=== PATIENT | male | born 1955 | race Caucasian/White ===

== ENCOUNTER → 2017-12-25 | Outpatient (CLI) | payer OTHER ==
--- NOTE | 2017-12-25 15:14 | XR ---
EXAMINATION TYPE: XR chest 2V DATE OF EXAM: 12/25/2017 COMPARISON: NONE HISTORY: M 46.2 TECHNIQUE: Frontal and lateral views of the chest are obtained. FINDINGS: Syndesmotic by noted compatible with patient's history of ankylosing spondylitis. Patient may be rotated. There may be a spinal curvature. No evident airspace disease, pneumothorax, or pleura l effusion. Cardiac mediastinal silhouette and pulmonary vascularity, brendon are normal. IMPRESSION: Findings compatible with patient's history of ankylosing spondylitis
== END | disposition home or self-care (01) ==
LOC: RADXRMAIN 11:39
PROVIDERS: ATTEND Family Medicine
DX: M45.2 Ankylosing spondylitis of cervical region (principal)
CPT/HCPCS: 71046

== ENCOUNTER → 2018-08-18 | Outpatient (CLI) | payer OTHER ==
--- NOTE | 2018-08-18 14:05 | XR ---
EXAMINATION TYPE: XR chest 2V DATE OF EXAM: 08/18/2018 COMPARISON: 12/25/2017 TECHNIQUE: PA and lateral views submitted. HISTORY: Wheezing FINDINGS: The lungs are clear and there is no pneumothorax, pleural effusion, or focal pneumonia. Arthropathy of the shoulders. There is a nodule at the right lung base measuring 8 mm. Hypertrophic change of th e vertebral column with degenerative disc disease. No overt failure. IMPRESSION: 1. No acute process. There is a 8 mm right lower lobe lung nodule for which CT of the chest is recomm ended.
== END | disposition home or self-care (01) ==
LOC: RADXRMAIN 13:33
PROVIDERS: ATTEND Family Medicine
DX: R91.1 Solitary pulmonary nodule (principal); J45.909 Unspecified asthma, uncomplicated
CPT/HCPCS: 71046

== ENCOUNTER → 2018-08-20 | Outpatient (CLI) | payer OTHER ==
--- NOTE | 2018-08-20 16:02 | CT ---
EXAMINATION TYPE: CT chest wo/w con DATE OF EXAM: 08/20/2018 COMPARISON: 08/18/2018 HISTORY: Abnormal xray results CT DLP: 1225 mGycm. Automated Exposure Control for Dose Reduction was Utilized. TECHNIQUE: CT scan of the thorax is performed following without and with IV Contrast, patient inject ed with 100 mL of Isovue 300. FINDINGS: LUNGS: The previously questioned 8 mm right lower lobe pulmonary nodule relates to an overlying nippl e shadow as no pulmonary nodules are seen. There is linear right middle lobe pleural parenchymal scar ring. The lungs are grossly clear, there is no concerning parenchymal mass or nodule identified. Th ere is no pleural effusion or pneumothorax seen. The tracheobronchial tree is patent. MEDIASTINUM: There are no greater than 1 cm hilar or mediastinal lymph nodes. No pericardial effusi on is seen. Mild coronary artery calcifications are present. OTHER: Bridging anterior osteophytes are seen throughout the thoracic spine that may be related to an kylosing spondylitis or less likely diffuse idiopathic skeletal hyperostosis. Fluid attenuated 1.3 cm hepatic cyst is appreciated with smaller probable cyst in segment IVb near the gallbladder fossa. Sc attered colonic diverticula are incidentally noted. IMPRESSION: 1. The previously questioned pulmonary nodule on prior chest radiograph is artifactual. No pulmonary nodules are seen. 2. Findings suggesting ankylosing spondylitis and less likely diffuse idiopathic skeletal hyperostosi s. 3. Mild coronary artery calcifications, marker of coronary artery disease.
== END | disposition home or self-care (01) ==
LOC: RADCTMAIN 15:13
PROVIDERS: ATTEND Family Medicine
DX: I25.10 Atherosclerotic heart disease of native coronary artery without angina pectoris (principal); R93.89 Abnormal findings on diagnostic imaging of other specified body structures
CPT/HCPCS: 71270; Q9967

== ENCOUNTER → 2018-12-22 | Outpatient (CLI) | payer OTHER ==
--- NOTE | 2018-12-23 05:42 | CONS ---
CONSULTATION Consultation note for sleep apnea. This is a 63-year-old male patient, a patient with known history of ankylosing spondylitis, maintained on Enbrel injections. The patient has had chronic history of ankylosing spondylitis complicated by restrictive lung disease. He also has mild intermittent bronchial asthma and previous history of nasal polyps for which he has undergone nasal polyp resection surgery. He was sent over for a sleep apnea evaluation. He snores on and off. He stops breathing at night and this has been reported by his . He goes to bed around 11:30 p.m., wakes up 7 a.m. in the morning. It takes him a few minutes to fall asleep. No major sleepiness although he gets tired during the day. No recent weight gain or weight loss. His current [place] Score is at 4. No history of any motor vehicle accident because of feeling drowsy or sleepy. He is still in the [id number] business and he is able to function well with adequate level of alertness. He does not take any naps during the day. In terms of his ankylosing spondylitis, the patient has improved significantly with the use of Enbrel injection. On and off he gets uncomfortable at night during sleep and sometimes back pain would disrupt his sleep. Yet for the most part, his symptoms are well controlled as the patient has gone undergone extensive treatment and rehabilitation. PAST MEDICAL HISTORY: 1. Ankylosing spondylitis. 2. Restrictive lung disease. 3. Mild intermittent bronchial asthma. 4. History of nasal polyps. PAST SURGICAL HISTORY: Past surgical history includes appendectomy. DRUG ALLERGIES: Drug allergies not known of. OUTPATIENT MEDICATION LIST: Outpatient medical list include: Enbrel 25 two times a week, citalopram 20 mg p.o. q. day, Singulair 10 mg p.o. q. day. SOCIAL HISTORY: Nonsmoker. No history of alcohol. No history of IV drugs. He drinks around 3 drinks of alcohol on daily basis. FAMILY HISTORY: Negative for sleep apnea. REVIEW OF SYSTEMS: Twelve-point review of system was done. Positive findings are mentioned above in history of present illness. No loss of insomnia. On a few occasions he has woken up gasping for air. Occasionally grinds his teeth. No sleepwalking or sleep talking. No dry mouth. No anxiety or panic attacks. No palpitation. No heartburn. No shortness of breath. No chest pain at night time. PHYSICAL EXAMINATION: His current vitals are as follows: BP is 115/69, pulse is 70, respirations 16, temperature 97.9, saturation 96% on room air. Height is 5 feet 8 inches, weight 195, and neck size 15-1/2 inches. GENERAL APPEARANCE: Calm, comfortable in no acute distress. Head is atraumatic, normocephalic. Neck is short, supple. There is no goiter or neck masses. Mallampati class 1. No overbite. No micrognathia. No macroglossia. LUNGS: Clear to auscultation. HEART: Sounds regular rate and rhythm. Normal S1, S2. No S3, S4. No murmurs. ABDOMEN: Soft, nontender. No organomegaly. EXTREMITIES: No edema, cyanosis or clubbing. NEUROLOGIC: Alert and oriented x3. No focal neurological deficits. PSYCHIATRIC: Negative for anxiety or depression. IMPRESSION: 1. Loud snoring and witnessed apneas. Consider obstructive sleep apnea in this patient. 2. History of ankylosing spondylitis. 3. History of restrictive lung disease secondary to ankylosing spondylitis. 4. History of mild intermittent bronchial asthma. PLAN: 1. Implement good sleep hygiene measures. 2. Continue Enbrel injections regarding ankylosing spondylitis. 3. Continue with daily exercise. 4. Proceed with a home sleep study to screen the patient for any sleep breathing disorder and treat accordingly. LUIS / MARY JO: [id number] /
== END ==
LOC: SLEEP 16:53
PROVIDERS: ATTEND Internal Medicine Critical Care Medicine
DX: R06.83 Snoring (principal); M45.9 Ankylosing spondylitis of unspecified sites in spine; J98.4 Other disorders of lung; J45.909 Unspecified asthma, uncomplicated; Z79.899 Other long term (current) drug therapy

== ENCOUNTER → 2019-06-22 | Outpatient (CLI) | payer OTHER ==
--- NOTE | 2019-06-22 10:50 | EST ---
EXERCISE STRESS DATE OF SERVICE: 06/22/2019 AGE: 63 SEX: Male HT: 70 WT: 197 PROTOCOL: Miguel STAGE: IV DURATION OF EXERCISE: 9-1/2 minutes HEART RATE REST: 79 BLOOD PRESSURE REST: 112/98 MAXIMUM HEART RATE ACHIEVED: 141 MAXIMUM BLOOD PRESSURE: 188/77 85% MPHR: 134 100% MPHR: 158 METS: 11 INDICATIONS: Coronary artery disease. CLINICAL INFORMATION: Baseline EKG shows sinus rhythm, normal axis, normal intervals. Patient exercised on Miguel protocol for a total of 9-1/2 minutes, achieving 11 METs, 89% of predicted maximal heart rate without chest pain or diagnostic ST-segment depression. CONCLUSIONS: 1. Good exercise tolerance. 2. Negative stress test by EKG criteria. MMODL / IJN: [id number] /
== END ==
LOC: RADNMMAIN 08:39
PROVIDERS: ATTEND Family Medicine
DX: I25.84 Coronary atherosclerosis due to calcified coronary lesion (principal)
CPT/HCPCS: 93017

== ENCOUNTER → 2019-11-11 | Outpatient (CLI) | payer OTHER ==
--- NOTE | 2019-11-11 13:59 | US ---
EXAMINATION TYPE: US abdomen complete DATE OF EXAM: 11/11/2019 COMPARISON: NONE CLINICAL HISTORY: R10.13 EPIGASTRIC PAIN. EXAM MEASUREMENTS: Liver Length: 14.1 cm Gallbladder Wall: 0.3 cm CBD: 0.4 cm Spleen: 10.7 cm Right Kidney: 11.5 X 5.9 X 5.3 cm Left Kidney: 11.9 X 5.1 X 5.5 cm technically difficult study due to extensive midline bowel gas. Pancreas: not visualized due to midline bowel gas Liver: limited visualization, appears wnl Gallbladder: No stones seen Evidence for sonographic May's sign: No CBD: wnl Spleen: wnl Right Kidney: midpole cyst measures 2.8 x 2.8 x 2.3 cm Left Kidney: No hydronephrosis or masses seen Upper IVC: wnl Abd Aorta: not visualized due to midline bowel gas IMPRESSION: 1. No sonographic evidence of cholelithiasis nor acute cholecystitis. 2. Exam is limited secondary to extensive midline bowel gas and there is suboptimal visualization of the liver and nonvisualization of the aorta and pancreas. 3. Benign appearing simple 2.8 cm right renal cyst.
== END | disposition home or self-care (01) ==
LOC: RADUSWWP 13:02
PROVIDERS: ATTEND Family Medicine
DX: R14.3 Flatulence (principal); N28.1 Cyst of kidney, acquired
CPT/HCPCS: 76700

== ENCOUNTER 2019-12-02 08:35 | Day surgery (SDC) | payer OTHER ==
[2019-12-01 09:00] VITALS: BMI 27.2
[~2019-12-02 08:35] MED LIST: LACTATED RINGERS 1,000 ML IV SCH
[2019-12-02 09:02] VITALS: TEMP 97.7
--- NOTE | 2019-12-02 09:23 | P.GSHP ---
History of Present Illness H&P Date: 12/02/19 CHIEF COMPLAINT: GERD HISTORY OF PRESENT ILLNESS: The patient is a 64-year-old male who presents reports gastroesophageal reflux disease. Upper endoscopy was offered for further evaluation and management. PAST MEDICAL HISTORY: Please see list. PAST SURGICAL HISTORY: Please see list. MEDICATIONS: Please see list. ALLERGIES: Please see list. SOCIAL HISTORY: No illicit drug use FAMILY HISTORY: No reports of Crohn disease or ulcerative colitis. REVIEW OF ORGAN SYSTEMS: CONSTITUTIONAL: No reports of fevers or chills. GI: Denies any blood in stools or constipation. PHYSICAL EXAM: VITAL SIGNS: Stable GENERAL: Well-developed and pleasant in no acute distress. HEENT: No scleral icterus. Extraocular movements grossly intact. Moist buccal mucosa. NECK: Supple without lymphadenopathy. CHEST: Unlabored respirations. Equal bilateral excursions. CARDIOVASCULAR: Regular rate and rhythm. Distal 2+ pulses. ABDOMEN: Soft, nondistended. MUSCULOSKELETAL: No clubbing, cyanosis, or edema. ASSESSMENT: 1. Gastroesophageal reflux disease PLAN: 1. Recommend proceeding with an upper endoscopy Past Medical History Past Medical History: Asthma, GERD/Reflux Additional Past Medical History / Comment(s): ankylosing spondilitis, no neck or head movement back and forth and side to side no chest expansion History of Any Multi-Drug Resistant Organisms: None Reported Past Surgical History: Appendectomy Additional Past Surgical History / Comment(s): rt knee meniscus, nasal polyps Past Anesthesia/Blood Transfusion Reactions: Motion Sickness Additional Past Anesthesia/Blood Transfusion Reaction / Comment(s): unable to move side to side and back and forth Smoking Status: Former smoker - Past Family History Mother Family Medical History: No Reported History Medications and Allergies Home Medications Medication Instructions Recorded Confirmed Type Ascorbic Acid [Vitamin C] 1 tab PO DAILY 12/01/19 12/02/19 History Celexa (Unk.Dose) 1 tab PO DAILY 12/01/19 12/02/19 History Cholecalciferol [Vitamin D3 (25 1,000 unit PO DAILY 12/01/19 12/02/19 History Mcg = 1000 Iu)] Etanercept [Enbrel] 25 mg SQ Q72H 12/01/19 12/02/19 History Inhaler (Unkn.Dose) 1 dose INHALATION BID 12/01/19 12/02/19 History Montelukast Sodium [Singulair] 10 mg PO DAILY 12/01/19 12/02/19 History Multivitamins, Thera [Multivitamin 1 tab PO DAILY 12/01/19 12/02/19 History (formulary)] Omeprazole (Unkn.Dose) 1 tab PO DAILY 12/01/19 12/02/19 History Allergies Allergy/AdvReac Type Severity Reaction Status Date / Time No Known Allergies Allergy Verified 12/02/19 08:57 Surgical - Exam Vital Signs Temp Pulse Resp BP Pulse Ox 97.7 F 66 17 119/71 95 12/02/19 09:01 12/02/19 09:01 12/02/19 09:01 12/02/19 09:01 12/02/19 09:01
[2019-12-02] MEDS ORDERED: GLYCOPYRROLATE 0.2 MG/ML 2 ML VIAL ONE (09:27)
[2019-12-02] MEDS ORDERED: PROPOFOL 10 MG/ML 20 ML VIAL IV ONE (09:27)
[2019-12-02] MEDS ORDERED: LIDOCAINE 1% INJ 10MG/ML (20 ML MDV) ONE (09:27)
--- NOTE | 2019-12-02 09:42 | P.PCN ---
Date of Procedure: 12/02/19 Description of Procedure: PREOPERATIVE DIAGNOSIS: Gastroesophageal reflux disease. POSTOPERATIVE DIAGNOSIS: Duodenal polyps with duodenitis Gastritis, acute on chronic diffuse Gastroesophageal reflux disease. OPERATION: Esophagogastroduodenoscopy with biopsies along antrum. SURGEON: Annie Solitario MD ANESTHESIA: MAC. INDICATIONS: The patient is a 64-year-old male who presents with a history of reflux disease. Benefits and risks of the procedure were described. Informed consent was obtained. DESCRIPTION: The patient was brought into the endoscopy suite and laid in the left lateral decubitus position. An Olympus gastroscope was passed along the posterior oropharynx down to the distal esophagus where the squamocolumnar junction was encountered at 42 cm from the incisors. The stomach was entered and no bile reflux was found. Additional findings are listed below. Biopsies with cold forceps were obtained of the antrum. The first through third portion of the duodenum was examined and remarkable acute duodenitis and multiple duodenal polyps. Retroflexion of the scope confirmed Hill grade 3 lower esophageal valve. The squamocolumnar junction demonstrated LA grade B erosive esophagitis. The stomach was desufflated. The patient tolerated the procedure well. FINDINGS: Squamocolumnar junction 42 cm from the incisors. Diaphragmatic hiatus at 42 cm. Hill grade 3 lower esophageal valve. LA grade B erosive esophagitis. Acute and chronic duodenitis with duodenal polyps Acute on chronic gastritis diffuse RECOMMENDATIONS: Repeat upper endoscopy in one month after treatment Plan - Discharge Summary Discharge Rx Participant: No New Discharge Prescriptions: No Action Montelukast Sodium [Singulair] 10 mg PO DAILY Etanercept [Enbrel] 25 mg SQ Q72H Omeprazole (Unkn.Dose) 1 tab PO DAILY Cholecalciferol [Vitamin D3 (25 Mcg = 1000 Iu)] 1,000 unit PO DAILY Multivitamins, Thera [Multivitamin (formulary)] 1 tab PO DAILY Ascorbic Acid [Vitamin C] 1 tab PO DAILY Inhaler (Unkn.Dose) 1 dose INHALATION BID Celexa (Unk.Dose) 1 tab PO DAILY Discharge Medication List Ascorbic Acid [Vitamin C] 1 tab PO DAILY 12/01/19 [History] Celexa (Unk.Dose) 1 tab PO DAILY 12/01/19 [History] Cholecalciferol [Vitamin D3 (25 Mcg = 1000 Iu)] 1,000 unit PO DAILY 12/01/19 [History] Etanercept [Enbrel] 25 mg SQ Q72H 12/01/19 [History] Inhaler (Unkn.Dose) 1 dose INHALATION BID 12/01/19 [History] Montelukast Sodium [Singulair] 10 mg PO DAILY 12/01/19 [History] Multivitamins, Thera [Multivitamin (formulary)] 1 tab PO DAILY 12/01/19 [History] Omeprazole (Unkn.Dose) 1 tab PO DAILY 12/01/19 [History] Follow up Appointment(s)/Referral(s): Annie Solitario MD [STAFF PHYSICIAN] - 12/14/19 Patient Instructions/Handouts: Duodenitis (DC), Gastritis (DC) Discharge Disposition: HOME SELF-CARE
[2019-12-02 09:49] VITALS: RESP 18
[2019-12-02 10:18] VITALS: BP 109/68; PULSE 57
== END 2019-12-02 10:43 | disposition home or self-care (01) ==
LOC: ORWHC2ENDO 08:35
PROVIDERS: ATTEND Surgery Plastic and Reconstructive Surgery
DX: K29.00 Acute gastritis without bleeding (principal); K29.50 Unspecified chronic gastritis without bleeding; K29.80 Duodenitis without bleeding; K31.7 Polyp of stomach and duodenum; K21.0 Gastro-esophageal reflux disease with esophagitis; K22.10 Ulcer of esophagus without bleeding; J45.909 Unspecified asthma, uncomplicated; F32.9 Major depressive disorder, single episode, unspecified; M45.9 Ankylosing spondylitis of unspecified sites in spine; Z79.899 Other long term (current) drug therapy; Z88.1 Allergy status to other antibiotic agents; Z90.49 Acquired absence of other specified parts of digestive tract; Z87.891 Personal history of nicotine dependence
CPT/HCPCS: 88305; 88342; 43239; J2001; J2704

== ENCOUNTER → 2019-12-06 | Outpatient (CLI) | payer OTHER ==
--- NOTE | 2019-12-06 09:32 | NM ---
Nuclear medicine hepatobiliary scan. HISTORY: Pain. DOSAGE: The patient received 8 ounces of ensure plus and 4.7 mCi of Technetium 99m Choletec. FINDINGS: There is normal hepatic extraction. The gallbladder is seen by 10 minutes. There is bilia ry to bowel clearance by 25 minutes. Ejection fraction is 60%. IMPRESSION: 1. Normal hepatobiliary exam
== END | disposition home or self-care (01) ==
LOC: RADNMMAIN 07:00
PROVIDERS: ATTEND Surgery Plastic and Reconstructive Surgery
DX: K81.9 Cholecystitis, unspecified (principal); Z88.1 Allergy status to other antibiotic agents
CPT/HCPCS: 78226; A9537

== ENCOUNTER → 2021-05-10 | Outpatient (CLI) | payer OTHER ==
--- NOTE | 2021-05-10 11:05 | CT ---
EXAMINATION TYPE: CT abdomen pelvis w con DATE OF EXAM: 05/10/2021 COMPARISON: NONE HISTORY: 65-year-old male R10.31, Right lower quadrant pain TECHNIQUE: Contiguous axial scanning of the abdomen and pelvis following administration of 100 ml Iso tor 300 IV contrast. Delayed images through the kidneys and coronal/sagittal reconstructions perform ed. CT DLP: 1060.4 mGycm Automated exposure control for dose reduction was used. FINDINGS: Heart upper limits of normal in size without pericardial effusion. Lung bases clear without pleural effusion. A view small hypodensities in the liver, largest anterior mid liver measuring 1.3 cm suggestive of cy sts. A vague hypodensity measuring 1.6 cm at the inferior right liver lobe, axial image 32 of more ap parent on the delayed kidney images could represent a subtle hemangioma. Recommend targeted ultrasoun d follow-up in 3 months to reassess. Portal venous system is patent. No biliary ductal dilatation. Gallbladder, adrenal glands, spleen, and pancreas within normal limits. The right kidney shows slight congenital malrotation with a 3.1 cm lateral cortical cyst and a smalle r medial cortical cyst measuring 1.0 cm. Tiny 1.1 cm exophytic cortical hypodensity posterior upper p ole left kidney likely cysts. Symmetric uptake and excretion of contrast from both kidneys. No dilated small bowel, free fluid, or free air. There is mild annular thickening and narrowing at the ileum for a span of 4 cm that may be transient peristalsis. Numerous clustered nonenlarged right lower quadrant mesenteric lymph nodes, coronal image 37, axial i mage 40. A couple, larger 1.2 cm mid mesenteric lymph nodes, coronal image 29 and 35. While the appendix is not discretely visualized, no abnormal thickened and dilated appendix to sugges t acute appendicitis. Oral contrast has progressed to the distal sigmoid. There is generalized colonic diverticulosis, grea test at the cecum and also in the sigmoid colon. Strandy densities along the sigmoid colon, for examp le, axial image 50 likely prominent pericolonic vessels rather than mild inflammation. Mild circumferential bladder wall thickening. Prostate gland is mildly enlarged at 4.3 cm. Left-sided pelvic phlebolith. No abnormal fluid collection in the pelvis or pelvic lymphadenopathy. There is a small fat-containing right indirect inguinal hernia demonstrated on axial image 60. Bones: Moderate degenerative change at the hips. There is bony ankylosis across the SI joints. Syndes mophytes within the visualized spine as well as fusion of the posterior elements of the spine. IMPRESSION 1. Cecal and sigmoid diverticulosis. Strandy densities along the sigmoid colon likely prominent peric olonic vessels rather than mild acute inflammation. Correlate clinically to exclude any symptoms of m ild acute diverticulitis. 2. Mild annular thickening and narrowing involving a 4 cm long segment of the terminal ileum could be thickening from transient peristalsis. Terminal ileitis not excluded. 3. Numerous nonenlarged and borderline to mildly enlarged right lower quadrant and mid mesenteric lym ph nodes measuring up to 1.2 cm. Probably reactive/post inflammatory. Mesenteric adenitis is a consid eration. If there are symptoms that would indicate a terminal ileitis, this could be reactive to unde rlying infection or IBD. Further clinical correlation recommended. Three-month follow-up CT to ensure stability/resolution. 4. A vague 1.6 cm lesion inferior right liver lobe could represent a small hemangioma and can also be reassessed at the three-month follow-up. 5. Small fat-containing right indirect inguinal hernia. 6. Bony findings in keeping with ankylosing spondylitis. :
== END | disposition home or self-care (01) ==
LOC: RADCTMAIN 07:00
PROVIDERS: ATTEND Family Medicine
DX: K57.30 Diverticulosis of large intestine without perforation or abscess without bleeding (principal); K63.89 Other specified diseases of intestine; R59.0 Localized enlarged lymph nodes; K76.9 Liver disease, unspecified; K40.90 Unilateral inguinal hernia, without obstruction or gangrene, not specified as recurrent
CPT/HCPCS: 74177; Q9967

== ENCOUNTER 2021-07-11 09:27 | Day surgery (SDC) | payer BC ==
[2021-07-05 14:23] VITALS: BMI 27.2
[~2021-07-11 09:27] MED LIST changes: +LIDOCAINE 1% (10MG/ML) FOR IV START INTRADERMA PRN
--- NOTE | 2021-07-11 09:55 | P.GSHP ---
History of Present Illness H&P Date: 07/11/21 CHIEF COMPLAINT: Colon screen HISTORY OF PRESENT ILLNESS: The patient is a 66-year-old male who presents for colon screen. Lower endoscopy was offered for further evaluation and management. PAST MEDICAL HISTORY: Please see list. PAST SURGICAL HISTORY: Please see list. MEDICATIONS: Please see list. ALLERGIES: Please see list. SOCIAL HISTORY: No illicit drug use FAMILY HISTORY: No reports of Crohn disease or ulcerative colitis. REVIEW OF ORGAN SYSTEMS: CONSTITUTIONAL: No reports of fevers or chills. PHYSICAL EXAM: VITAL SIGNS: Stable GENERAL: Well-developed pleasant in no acute distress. HEENT: No scleral icterus. Extraocular movements grossly intact. Moist buccal mucosa. NECK: Supple without lymphadenopathy. CHEST: Unlabored respirations. Equal bilateral excursions. CARDIOVASCULAR: Regular rate and rhythm. Distal 2+ pulses. ABDOMEN: Soft, nontender, nondistended. MUSCULOSKELETAL: No clubbing, cyanosis, or edema. ASSESSMENT: 1. Colon screen. PLAN: 1. Recommend proceeding with a lower endoscopy Past Medical History Past Medical History: Asthma, GERD/Reflux, Skin Disorder Additional Past Medical History / Comment(s): diverticulitis, sludge in gallbladder, anklylosing spondylitis History of Any Multi-Drug Resistant Organisms: None Reported Past Surgical History: Appendectomy, Orthopedic Surgery Additional Past Surgical History / Comment(s): rt knee surgery for torn ligament Past Anesthesia/Blood Transfusion Reactions: Motion Sickness Smoking Status: Former smoker - Past Family History Sister(s) Family Medical History: Cancer Medications and Allergies Home Medications Medication Instructions Recorded Confirmed Type Ascorbic Acid [Vitamin C] 1,000 mg PO DAILY 12/01/19 07/05/21 History Cholecalciferol [Vitamin D3 (25 1,000 unit PO DAILY 12/01/19 07/05/21 History Mcg = 1000 Iu)] Etanercept [Enbrel] 25 mg SQ Q72H 12/01/19 07/05/21 History Montelukast Sodium [Singulair] 10 mg PO DAILY 12/01/19 07/05/21 History Multivitamins, Thera [Multivitamin 1 tab PO DAILY 12/01/19 07/05/21 History (formulary)] Budesonide/Formoterol Fumarate 1 puff PO BID 07/05/21 07/05/21 History [Budesonide-Formoterol 160-4.5] Citalopram Hydrobromide [CeleXA] 20 mg PO DAILY 07/05/21 07/05/21 History Fluticasone Nasal [place] [Flonase 1 spray EA NOSTRIL DAILY 07/05/21 07/05/21 History Nasal [place]] Omeprazole [PriLOSEC] 40 mg PO QAM 07/05/21 07/05/21 History Allergies Allergy/AdvReac Type Severity Reaction Status Date / Time No Known Allergies Allergy Verified 07/11/21 09:46
[2021-07-11 10:03] VITALS: TEMP 98.4
[2021-07-11] MEDS ORDERED: LIDOCAINE 1% INJ 10MG/ML (20 ML MDV) ONE (10:03)
[2021-07-11] MEDS ORDERED: fentaNYL (PF) 50 MCG/ML 2 ML AMP ONE (10:03)
[2021-07-11] MEDS ORDERED: PROPOFOL 10 MG/ML 20 ML VIAL IV ONE (10:03)
--- NOTE | 2021-07-11 10:31 | P.PCN ---
Date of Procedure: 07/11/21 Description of Procedure: PREOPERATIVE DIAGNOSIS: Family history colon cancer, genetic disorder Personal history colon polyps Colonoscopy screening. POSTOPERATIVE DIAGNOSIS: Family history colon cancer, genetic disorder Personal history colon polyps Colonoscopy screening. Severe sigmoid diverticulosis External hemorrhoid, grade 4 OPERATION: Colonoscopy to the cecum, ileocecal valve and appendiceal orifice. SURGEON: Annie Solitario MD. ANESTHESIA: MAC. INDICATIONS: The patient is a 66-year-old male who presents for colonoscopy screening. Last colonoscopy 5 years ago. Benefits and risks were described and informed consent was obtained. DESCRIPTION OF PROCEDURE: The patient had undergone Sutab prep. The patient had been brought into the operating room and laid in the left lateral decubitus position. After adequate intravenous sedation, the rectum was examined with 2% lidocaine jelly. Acute external hemorrhoids were encountered. The rectal tone was within normal limits. No lesions were palpated in the rectal vault. An Olympus colonoscope was advanced until the cecum, ileocecal valve and appendiceal orifice were clearly viewed. The prep was excellent. Severe sigmoid diverticulosis was encountered. No colonic polyps were found. No evidence of focal colitis was found. Retroflexion of the scope demonstrated grade 1 internal hemorrhoids without active bleeding or inflammation. The colon was desufflated. The patient had tolerated the procedure well. Withdrawal time was over 6 minutes. FINDINGS: Aronchick preparation quality scale 2 (1-5) Internal hemorrhoids, grade 1 External prolapsed hemorrhoids, grade 4 No arteriovenous malformations. No adenomatous polyps. No focal colitis. Severe sigmoid diverticulosis with redundant sigmoid colon RECOMMENDATIONS: Lower endoscopy in 3 years2023 Plan - Discharge Summary New Discharge Prescriptions: Continue Montelukast Sodium [Singulair] 10 mg PO DAILY Etanercept [Enbrel] 25 mg SQ Q72H Cholecalciferol [Vitamin D3 (25 Mcg = 1000 Iu)] 1,000 unit PO DAILY Multivitamins, Thera [Multivitamin (formulary)] 1 tab PO DAILY Ascorbic Acid [Vitamin C] 1,000 mg PO DAILY Budesonide/Formoterol Fumarate [Budesonide-Formoterol 160-4.5] 1 puff PO BID Omeprazole [PriLOSEC] 40 mg PO QAM Citalopram Hydrobromide [CeleXA] 20 mg PO DAILY Fluticasone Nasal [place] [Flonase Nasal Robeline] 1 spray EA NOSTRIL DAILY Discharge Medication List Ascorbic Acid [Vitamin C] 1,000 mg PO DAILY 12/01/19 [History] Cholecalciferol [Vitamin D3 (25 Mcg = 1000 Iu)] 1,000 unit PO DAILY 12/01/19 [History] Etanercept [Enbrel] 25 mg SQ Q72H 12/01/19 [History] Montelukast Sodium [Singulair] 10 mg PO DAILY 12/01/19 [History] Multivitamins, Thera [Multivitamin (formulary)] 1 tab PO DAILY 12/01/19 [History] Budesonide/Formoterol Fumarate [Budesonide-Formoterol 160-4.5] 1 puff PO BID 07/05/21 [History] Citalopram Hydrobromide [CeleXA] 20 mg PO DAILY 07/05/21 [History] Fluticasone Nasal [place] [Flonase Nasal [place]] 1 spray EA NOSTRIL DAILY 07/05/21 [History] Omeprazole [PriLOSEC] 40 mg PO QAM 07/05/21 [History] Follow up Appointment(s)/Referral(s): Annie Solitario MD [STAFF PHYSICIAN] - As Needed Patient Instructions/Handouts: Hemorrhoids (DC), Diverticulosis Diet (GEN), Diverticulosis (DC) Activity/Diet/Wound Care/Special Instructions: Repeat colonoscopy in 3 years, 2023 Discharge Disposition: HOME SELF-CARE
[2021-07-11 11:00] VITALS: RESP 20
[2021-07-11 11:06] VITALS: BP 122/78; PULSE 60
== END 2021-07-11 11:19 | disposition home or self-care (01) ==
LOC: ORWHC2ENDO 09:27
PROVIDERS: ATTEND Surgery Plastic and Reconstructive Surgery
DX: Z12.11 Encounter for screening for malignant neoplasm of colon (principal); Z80.0 Family history of malignant neoplasm of digestive organs; Z86.010 Personal history of colon polyps; K57.90 Diverticulosis of intestine, part unspecified, without perforation or abscess without bleeding; Z15.09 Genetic susceptibility to other malignant neoplasm; K64.4 Residual hemorrhoidal skin tags; K21.9 Gastro-esophageal reflux disease without esophagitis; Q43.8 Other specified congenital malformations of intestine; Z87.891 Personal history of nicotine dependence; F32.9 Major depressive disorder, single episode, unspecified; J45.909 Unspecified asthma, uncomplicated; Z79.899 Other long term (current) drug therapy
CPT/HCPCS: J2001; J3010; J2704; G0105; 45378

== ENCOUNTER 2021-07-19 07:45 | Day surgery (SDC) | payer BC ==
[2021-07-17 17:55] VITALS: BMI 27.5
--- NOTE | 2021-07-19 07:09 | P.GSHP ---
History of Present Illness H&P Date: 07/19/21 CHIEF COMPLAINT: Inguinal hernia, right. HISTORY OF PRESENT ILLNESS: The patient is a 66-year-old male who presents with a history of swelling and pain along the right groin. He has noted increased swelling including pain of the area. Now he presents for repair of his inguinal hernia. PAST MEDICAL HISTORY: Please see list. PAST SURGICAL HISTORY: Please see list. MEDICATIONS: Please see list. ALLERGIES: Please see list. SOCIAL HISTORY: No illicit drug use FAMILY HISTORY: No reports of Crohn disease or ulcerative colitis. REVIEW OF ORGAN SYSTEMS: CONSTITUTIONAL: No reports of fevers or chills. No reports of weight loss despite prior attempts. GI: Denies any blood in stools or constipation. PHYSICAL EXAM: VITAL SIGNS: Stable GENERAL: Well-developed pleasant in no acute distress. HEENT: No scleral icterus. Extraocular movements grossly intact. Moist buccal mucosa. NECK: Supple without lymphadenopathy. CHEST: Unlabored respirations. Equal bilateral excursions. CARDIOVASCULAR: Regular rate and rhythm. Distal 2+ pulses. ABDOMEN: Soft, nondistended. No peritoneal signs. Right inguinal hernia. MUSCULOSKELETAL: No clubbing, cyanosis, or edema. ASSESSMENT: 1. Inguinal hernia, right PLAN: 1. Recommend proceeding robotic inguinal repair with mesh with possible bilateral approach. 2. Benefits and risks of surgical intervention was discussed including possibility of open technique. 3. DVT prophylaxis. 4. Antibiotic prophylaxis. Past Medical History Past Medical History: Asthma, GERD/Reflux Additional Past Medical History / Comment(s): Diverticulitis. Sludge in gallbladder. Ankylosing spondylitis. Rt inguinal hernia History of Any Multi-Drug Resistant Organisms: None Reported Past Surgical History: Appendectomy, Orthopedic Surgery Additional Past Surgical History / Comment(s): Rt knee surg, colonoscopy Past Anesthesia/Blood Transfusion Reactions: Motion Sickness Past Psychological History: Depression Smoking Status: Former smoker Past Alcohol Use History: Daily Additional Past Alcohol Use History / Comment(s): quit smoking 1995 est; has 3-4 alcoholic drinks daily Past Drug Use History: None Reported - Past Family History Sister(s) Family Medical History: Cancer Medications and Allergies Home Medications Medication Instructions Recorded Confirmed Type Ascorbic Acid [Vitamin C] 1,000 mg PO DAILY 12/01/19 07/17/21 History Cholecalciferol [Vitamin D3 (25 1,000 unit PO DAILY 12/01/19 07/17/21 History Mcg = 1000 Iu)] Etanercept [Enbrel] 25 mg SQ Q72H 12/01/19 07/17/21 History Montelukast Sodium [Singulair] 10 mg PO DAILY 12/01/19 07/17/21 History Multivitamins, Thera [Multivitamin 1 tab PO DAILY 12/01/19 07/17/21 History (formulary)] Budesonide/Formoterol Fumarate 1 puff PO BID 07/05/21 07/17/21 History [Budesonide-Formoterol 160-4.5] Citalopram Hydrobromide [CeleXA] 20 mg PO DAILY 07/05/21 07/17/21 History Fluticasone Nasal [place] [Flonase 1 spray EA NOSTRIL DAILY 07/05/21 07/17/21 History Nasal [place]] Omeprazole [PriLOSEC] 40 mg PO QAM PRN 07/05/21 07/17/21 History Allergies Allergy/AdvReac Type Severity Reaction Status Date / Time No Known Allergies Allergy Verified 07/17/21 17:27
[~2021-07-19 07:45] MED LIST changes: +ACETAMINOPHEN TAB 500 MG TAB PO PRN; +DEXAMETHASONE SOD PHOSPHATE 4 MG/ML 1 ML VIAL IV ONE; +GABAPENTIN 300 MG CAP PO PRN; +HEPARIN SODIUM,PORCINE/PF 5,000 UNIT/0.5 ML SYRINGE SQ PRN; +HYDROmorphone 0.5 MG/0.5 ML SYRINGE IVP PRN; -LACTATED RINGERS 1,000 ML IV SCH; -LIDOCAINE 1% (10MG/ML) FOR IV START INTRADERMA PRN; +MELOXICAM 7.5 MG TAB PO PRN; +ONDANSETRON 4 MG/2 ML VIAL IVP ONE; +TAMSULOSIN 0.4 MG CAP.ER.24H PO PRN
[2021-07-19] MEDS: LACTATED RINGERS 1,000 ML IV SCH ×3 (08:30→14:55)
[2021-07-19 08:40] LABS: Basophils % (A) 1 %; Eosinophils # (A) 0.4 k/uL (0-0.7); Eosinophils % (A) 6 %; HCT 43.6 % (39.0-53.0); Lymphocytes # (A) 1.6 k/uL (1.0-4.8); Lymphocytes % (A) 27 %; MCH 31.4 pg (25.0-35.0); MCHC 34.5 g/dL (31.0-37.0); Mean Platelet Volume 6.5; Monocytes # (A) 0.4 k/uL (0-1.0); Monocytes % (A) 6 %; Neutrophils # (A) 3.4 k/uL (1.3-7.7); Neutrophils % (A) 57 %; Platelet Count 294 k/uL (150-450); RBC 4.79 m/uL (4.30-5.90); RDW 12.7 % (11.5-15.5); WBC 5.9 k/uL (3.8-10.6)
[2021-07-19] MEDS ORDERED: MIDAZOLAM 2 MG/2 ML VIAL IV ONE (08:43)
[2021-07-19] MEDS ORDERED: fentaNYL (PF) 50 MCG/ML 2 ML AMP IV ONE (08:43)
[2021-07-19 08:51] LABS: ALT 22 U/L (4-49); AST 24 U/L (17-59); African American GFR (CKD) >90 (>60 ml/min/1.73 sqM); Albumin 3.7 g/dL (3.5-5.0); Alkaline Phosphatase 53 U/L (38-126); Anion Gap 9 mmol/L; Blood Urea Nitrogen 18 mg/dL (9-20); Calcium 9.1 mg/dL (8.4-10.2); Carbon Dioxide 25 mmol/L (22-30); Chloride 107 mmol/L (98-107); Glucose 109 mg/dL (74-99); Non-African American GFR(CKD) >90 (>60 ml/min/1.73 sqM); Potassium 4.3 mmol/L (3.5-5.1); Sodium 141 mmol/L (137-145); Total Bilirubin 0.5 mg/dL (0.2-1.3); Total Protein 6.6 g/dL (6.3-8.2)
[2021-07-19] MEDS ORDERED: SODIUM CHLORIDE 0.9% (PF) 10 ML VIAL ONE (09:26)
[2021-07-19] MEDS ORDERED: ROPIVACAINE 5 MG/ML 30 ML VIAL ONE (09:26)
[2021-07-19] MEDS ORDERED: ROCURONIUM 10 MG/ML (5 ML VIAL) IV ONE (09:26)
[2021-07-19] MEDS ORDERED: LIDOCAINE 1% INJ 10MG/ML (20 ML MDV) ONE (09:26)
[2021-07-19] MEDS ORDERED: NEOSTIGMINE 1 MG/ML 10 ML VIAL ONE (09:26)
[2021-07-19] MEDS ORDERED: GLYCOPYRROLATE 0.2 MG/ML 2 ML VIAL ONE (09:26)
[2021-07-19] MEDS ORDERED: HYDROmorphone (PF) 1 MG/ML ONE (09:26)
[2021-07-19] MEDS ORDERED: ePHEDrine SULFATE/0.9% NACL/PF 50 MG/5 ML SYRINGE IV ONE (09:26)
[2021-07-19] MEDS ORDERED: SUCCINYLCHOLINE CHLORIDE 100 MG/5 ML SYR IV ONE (09:26)
[2021-07-19] MEDS ORDERED: PROPOFOL 10 MG/ML 20 ML VIAL IV ONE (09:26)
[2021-07-19] MEDS ORDERED: fentaNYL (PF) 50 MCG/ML 2 ML AMP ONE (09:26)
[2021-07-19] MEDS ORDERED: MIDAZOLAM 2 MG/2 ML VIAL ONE (09:26)
[2021-07-19] MEDS ORDERED: LIDOCAINE 0.5%-EPI 1:200,000 50 ML VIAL SQ ONE (09:30)
[2021-07-19] MEDS ORDERED: LIDOCAINE 1%/EPI 1:200,000 MPF 10 ML VIAL SQ ONE (09:30)
--- NOTE | 2021-07-19 10:10 | P.ANPRN ---
Procedure Note - Anesthesia - Nerve Block Performed Bilateral Transversus Abdominis Single Time Out Performed: Yes (842) Date of Procedure: 07/19/21 Procedure Start Time: 08:43 Procedure Stop Time: 08:50 Location of Patient: PreOp Indication: Acute Post-Operative Pain, Requested by Surgeon Specifically requested for management of pain by : Annie Solitario Sedation Type: Sedate with meaningful contact maintained Preparation: Sterile Prep Position: Supine Catheter: None Needle Types: Pajunk Needle Gauge: 21 Ultrasound used to visualize needle placement: Yes Ultrasound used to observe medication spread: Yes Injectate: 0.5% Ropivacaine (see comment for volume) (15cc + NACL PF 15cc each side) Blood Aspirated: No Pain Paresthesia on Injection Noted: No Resistance on Injection: Normal Image Stored and Saved: Yes Events: Uneventful and Well Tolerated
[2021-07-19] MEDS ORDERED: LACTATED RINGERS 1,000 ML IV ONE ×2 (10:43)
[2021-07-19 11:50] VITALS: TEMP 96.9
--- NOTE | 2021-07-19 11:55 | P.OP ---
Date of Procedure: 07/19/21 Description of Procedure: SURGEON: ANNIE SOLITARIO MD PREOPERATIVE DIAGNOSES: 1. Initial right inguinal hernia. 2. Gastroesophageal reflux disease 3. Chronic obstructive pulmonary disease due to asthma 4. Ankylosing spondylitis 5. Depressive disorder POSTOPERATIVE DIAGNOSES: 1. Initial right inguinal hernia, indirect with incarcerated small bowel 2. Gastroesophageal reflux disease 3. Chronic obstructive pulmonary disease due to asthma 4. Ankylosing spondylitis 5. Depressive disorder OPERATION: 1. Robotic-assisted da Olegario Xi laparoscopic right inguinal hernia repair with mesh, 11.[address] ANESTHESIA: General with local anesthetic ESTIMATED BLOOD LOSS: 5 mL. SPECIMENS REMOVED: Right inguinal hernia sac COMPLICATIONS: None. FINDINGS: 1. Right inguinal hernia sac extending to scrotum with complete weakness of posterior floor and hernia defect 3-cm, Nyhus type IIIb and incarcerated small bowel reduced. 2. Non-absorbable 2-0 VLOC used INDICATIONS: The patient is a 66-year-old gentleman who presents with history of right groin pain. Now presents for definitive surgical intervention. Laparoscopic versus open and robotic approaches were discussed. Benefits and risks including bleeding, infection, injury to the vas deferens as well as sterility and chronic groin pain were reviewed. Placement of mesh was also described. Informed consent was obtained. DESCRIPTION: In the preoperative area, the patient was marked with indelible marker along the inguinal hernia. The patient was brought to the operating room and initially laid in supine position. The abdomen had been prepped and draped in standard sterile fashion. Ioban draping was also placed. Prior to incision, a timeout protocol was confirmed with surgical team regarding patient's name including procedures to be performed and location along the right groin. Initial positioning for the robotic assisted ports were selected whereby 20 cm superior to the target anatomy, 0 degree 5 mm laparoscopic trocar entry was performed at the left upper quadrant. The abdomen was insufflated to 15 mmHg which he had tolerated well. Diagnostic laparoscopy demonstrated an indirect inguinal hernia along the right groin. Next, along the epigastrium, 8 mm robot trocar was placed. An 8-mm robotic trocar was placed under direct visualization at the right upper quadrant. An 8 mm port was placed at the left upper quadrant. All trocars were positioned between 8 to 10-cm apart from each other. The [employer]se XI robot was primed, draped, prepared for docking along the right side of the patient. The patient was placed in Trendelenberg position 21-degrees. I then went to the Zipwhip Xi console. The assistant professor of anthropology was at bedside for exchange of the robot arms and equipment. No hernia was identified along the left groin. The right inguinal hernia sac was evaginated whereby the peritoneum was scored using Endo scissors with cautery. Complete weakness of the posterior floor was confirmed. Once completely reduced into the abdominal cavity, the peritoneal sac of the hernia was stripped along an indirect inguinal hernia and sac was resected and then passed off for further pathological analysis. The size of the hernia defect was 3 cm with intraoperative films obtained. Using non-absorbable sutures 2-0 VLOC, the peritoneal defect of the right inguinal hernia site was closed using a pursestring suture. The defect was found to be completely closed with complete reduction of the right direct inguinal hernia was confirmed. The right 8-mm trocar was upsized to 12-mm after re-scrubbing into the case. As an onlay, an 11.[address] mesh by Ezuza was initially cut in half and entered into the abdominal cavity via the 8 mm trocar. The mesh was tacked to the pelvis using non-absorbale 2-0 VLOC 9-inch length sutures. The robot was undocked from the patient's bedside. I then rescrubbed into the case. Insufflation was released from the abdominal cavity and all instruments were removed from the abdominal cavity. The rest of incisions were reapproximated using 4-0 Monocryl in a running subcuticular fashion. Local anesthetic was placed along the incision including for a right groin block. Incisions were cleansed using dilute hydrogen peroxide. Liquid glue was applied to the skin. At the end of the procedure, the needle, sponge and instrument counts had been verified correct by the surgical resident. The patient had tolerated the procedure well and was taken to the postanesthesia care unit in stable condition. Plan - Discharge Summary Discharge Rx Participant: No New Discharge Prescriptions: New Acetaminophen Tab [Tylenol Tab] 1,000 mg PO Q6HR PRN #30 tablet PRN Reason: Pain Ibuprofen [Motrin] 600 mg PO Q8HR PRN #30 tab PRN Reason: Pain Simethicone [Gas-X] 125 mg PO AC-TID PRN #20 cap PRN Reason: Pain Continue Montelukast Sodium [Singulair] 10 mg PO DAILY Etanercept [Enbrel] 25 mg SQ Q72H Cholecalciferol [Vitamin D3 (25 Mcg = 1000 Iu)] 1,000 unit PO DAILY Multivitamins, Thera [Multivitamin (formulary)] 1 tab PO DAILY Ascorbic Acid [Vitamin C] 1,000 mg PO DAILY Budesonide/Formoterol Fumarate [Budesonide-Formoterol 160-4.5] 1 puff PO BID Omeprazole [PriLOSEC] 40 mg PO QAM PRN PRN Reason: GERD Citalopram Hydrobromide [CeleXA] 20 mg PO DAILY Fluticasone Nasal [place] [Flonase Nasal [place]] 1 spray EA NOSTRIL DAILY Discharge Medication List Ascorbic Acid [Vitamin C] 1,000 mg PO DAILY 12/01/19 [History] Cholecalciferol [Vitamin D3 (25 Mcg = 1000 Iu)] 1,000 unit PO DAILY 12/01/19 [History] Etanercept [Enbrel] 25 mg SQ Q72H 12/01/19 [History] Montelukast Sodium [Singulair] 10 mg PO DAILY 12/01/19 [History] Multivitamins, Thera [Multivitamin (formulary)] 1 tab PO DAILY 12/01/19 [History] Budesonide/Formoterol Fumarate [Budesonide-Formoterol 160-4.5] 1 puff PO BID 07/05/21 [History] Citalopram Hydrobromide [CeleXA] 20 mg PO DAILY 07/05/21 [History] Fluticasone Nasal [place] [Flonase Nasal [place]] 1 spray EA NOSTRIL DAILY 07/05/21 [History] Omeprazole [PriLOSEC] 40 mg PO QAM PRN 07/05/21 [History] Acetaminophen Tab [Tylenol Tab] 1,000 mg PO Q6HR PRN #30 tablet 07/19/21 [Rx] Ibuprofen [Motrin] 600 mg PO Q8HR PRN #30 tab 07/19/21 [Rx] Simethicone [Gas-X] 125 mg PO AC-TID PRN #20 cap 07/19/21 [Rx] Follow up Appointment(s)/Referral(s): Annie Solitario MD [STAFF PHYSICIAN] - 07/26/21 Patient Instructions/Handouts: Laparoscopic Herniorrhaphy (IP), Inguinal Hernia Repair (DC) Activity/Diet/Wound Care/Special Instructions: Using antibacterial soap. No lifting over 4 pounds 4 weeks, Jul 19March shower. No bathtub soaks for 2 weeks, Aug 02 Wear abdominal binder daily for comfort except for showering. Use ice along incisions for today to prevent swelling. Take tylenol, aleve/ibuprofen, simethicone scheduled for 3 days for best pain relief Discharge Disposition: HOME SELF-CARE
[2021-07-19] MEDS ORDERED: SIMETHICONE 80 MG CHEWABLE PO ONE (13:00)
[2021-07-19] MEDS ORDERED: KETOROLAC 15 MG/ML 1 ML VIAL ONE (13:11)
[2021-07-19] MEDS ORDERED: oxyCODONE-APAP 5-325MG 1 EACH TAB PO PRN (13:40)
[2021-07-19 14:58] VITALS: BP 138/86; PULSE 90; RESP 18
== END 2021-07-19 15:06 | disposition home or self-care (01) ==
LOC: OR 07:45
PROVIDERS: ATTEND Surgery Plastic and Reconstructive Surgery
DX: K40.90 Unilateral inguinal hernia, without obstruction or gangrene, not specified as recurrent (principal); K21.9 Gastro-esophageal reflux disease without esophagitis; J44.9 Chronic obstructive pulmonary disease, unspecified; F32.9 Major depressive disorder, single episode, unspecified; M47.9 Spondylosis, unspecified; Z87.891 Personal history of nicotine dependence; K57.90 Diverticulosis of intestine, part unspecified, without perforation or abscess without bleeding; Z79.899 Other long term (current) drug therapy
CPT/HCPCS: 49650; S2900; 64488; 80053; 85025; 88302

== ENCOUNTER → 2022-07-24 | Outpatient (CLI) | payer BC ==
--- NOTE | 2022-07-24 12:38 | US ---
EXAMINATION TYPE: US venous doppler duplex LE RT DATE OF EXAM: 07/24/2022 12:26 PM COMPARISON: NONE CLINICAL HISTORY: M79.661 PAIN RIGHT LOWER LEG. Pt states pain right leg SIDE PERFORMED: Right TECHNIQUE: The lower extremity deep venous system is examined utilizing real time linear array sonog gio with graded compression, doppler sonography and color-flow sonography. VESSELS IMAGED: Common Femoral Vein Deep Femoral Vein Greater Saphenous Vein * Femoral Vein Popliteal Vein Small Saphenous Vein * Proximal Calf Veins (* superficial vessels) Right Leg: Negative for DVT Attempted to call Dr's office at time of exam for results, no answer IMPRESSION: No evidence of DVT at this time.
== END | disposition home or self-care (01) ==
LOC: RADUSWWP 12:08
PROVIDERS: ATTEND Family Medicine
DX: M79.661 Pain in right lower leg (principal)

== ENCOUNTER 2024-07-21 10:13 | Day surgery (SDC) | payer BC ==
--- NOTE | 2024-07-21 09:49 | P.GSHP ---
History of Present Illness H&P Date: 07/21/24 CHIEF COMPLAINT: GERD and family history of colon cancer HISTORY OF PRESENT ILLNESS: The patient is a 69-year-old male who presents personal history of polyps, family history of gastrointestinal malignancy including severe gastroesophageal reflux disease. Upper and lower endoscopy were offered for further evaluation and management. PAST MEDICAL HISTORY: Please see list. PAST SURGICAL HISTORY: Please see list. MEDICATIONS: Please see list. ALLERGIES: Please see list. SOCIAL HISTORY: No illicit drug use FAMILY HISTORY: No reports of Crohn disease or ulcerative colitis. REVIEW OF ORGAN SYSTEMS: CONSTITUTIONAL: No reports of fevers or chills. GI: Denies any blood in stools or constipation. PHYSICAL EXAM: VITAL SIGNS: Stable GENERAL: Well-developed pleasant in no acute distress. HEENT: No scleral icterus. Extraocular movements grossly intact. Moist buccal mucosa. NECK: Supple without lymphadenopathy. CHEST: Unlabored respirations. Equal bilateral excursions. CARDIOVASCULAR: Regular rate and rhythm. Distal 2+ pulses. ABDOMEN: Soft, nondistended. MUSCULOSKELETAL: No clubbing, cyanosis, or edema. ASSESSMENT: 1. Gastrointestinal malignancy in family 2. Gastroesophageal reflux disease PLAN: 1. Recommend proceeding with an upper and lower endoscopy Past Medical History Past Medical History: Asthma, GERD/Reflux, Skin Disorder Additional Past Medical History / Comment(s): diverticulitis, sludge in gallbladder, anklylosing spondylitis History of Any Multi-Drug Resistant Organisms: None Reported Past Surgical History: Appendectomy, Orthopedic Surgery Additional Past Surgical History / Comment(s): rt knee surgery for torn ligament Past Anesthesia/Blood Transfusion Reactions: Motion Sickness Additional Past Alcohol Use History / Comment(s): quit smoking > 25 yrs ago, 3-4 alcoholic drinks daily - Past Family History Sister(s) Family Medical History: Cancer Medications and Allergies Home Medications Medication Instructions Recorded Confirmed Type Montelukast Sodium [Singulair] 10 mg PO DAILY 12/01/19 07/20/24 History Multivitamins, Thera [Multivitamin 1 tab PO DAILY 12/01/19 07/20/24 History (formulary)] Citalopram Hydrobromide [CeleXA] 20 mg PO DAILY 07/05/21 07/20/24 History Fluticasone Nasal [place] [Flonase 1 spray EA NOSTRIL DAILY 07/05/21 07/20/24 History Nasal [place]] Omeprazole [PriLOSEC] 40 mg PO QAM PRN 07/05/21 07/20/24 History Acetaminophen Tab [Tylenol Tab] 1,000 mg PO Q6HR PRN #30 tablet 07/19/21 07/20/24 Rx Simethicone [Gas-X] 125 mg PO AC-TID PRN #20 cap 07/19/21 07/20/24 Rx Adalimumab [Humira(Cf) Pen] 40 mg SQ [id number] 07/20/24 07/20/24 History Allergies Allergy/AdvReac Type Severity Reaction Status Date / Time No Known Allergies Allergy Verified 07/20/24 09:28
[2024-07-21 10:45] VITALS: TEMP 97.3
[2024-07-21] MEDS: LIDOCAINE 1% (10MG/ML) FOR IV START INTRADERMA STA (10:45)
[2024-07-21] MEDS: IV FLUID CONTINUATION 1,000 ML IV ONE (10:50)
[2024-07-21] MEDS: LACTATED RINGERS 1,000 ML IV SCH (10:50)
[2024-07-21] MEDS ORDERED: LIDOCAINE 1% INJ 10MG/ML (20 ML MDV) ONE (11:31)
[2024-07-21] MEDS ORDERED: PROPOFOL 10 MG/ML 20 ML VIAL IV ONE (11:31)
--- NOTE | 2024-07-21 12:14 | P.PCN ---
Date of Procedure: 07/21/24 Description of Procedure: PREOPERATIVE DIAGNOSIS: Gastroesophageal reflux disease. Family history of gastrointestinal malignancy POSTOPERATIVE DIAGNOSIS: Duodenal adenoma/polyp Gastritis Gastroesophageal reflux disease OPERATION: Esophagogastroduodenoscopy with biopsies along esophagus, antrum and duodenum SURGEON: Annie Solitario MD ANESTHESIA: MAC. INDICATIONS: The patient is a 69-year-old male who presents with reflux disease including high risk gastrointestinal malignancies familial. Benefits and risks of the procedure were described. Informed consent was obtained. DESCRIPTION: The patient was brought into the endoscopy suite and laid in the left lateral decubitus position. An Olympus gastroscope was passed along the posterior oropharynx down to the distal esophagus where the squamocolumnar junction was encountered at 45 cm from the incisors. The stomach was entered and no bile ref lux was found. Additional findings are listed below. Biopsies with cold forceps were obtained of the antrum. The first through third portion of the duodenum was examined. Retroflexion of the scope confirmed Hill grade 3 lower esophageal valve. The squamocolumnar junction demonstrated LA grade A erosive esophagitis. The stomach was desufflated. The patient tolerated the procedure well. FINDINGS: Squamocolumnar junction 45 cm from the incisors. Diaphragmatic hiatus at 45 cm. Hill grade 3 lower esophageal valve. LA grade A erosive esophagitis. Biopsies obtained. Biopsies obtained of the duodenum of multiple duodenal polyp. Chronic gastritis with biopsies obtained. RECOMMENDATIONS: May need repeat upper endoscopy in 4 to 6 weeks for resection of duodenal polyps pending pathology
[2024-07-21 12:18] VITALS: RESP 18
--- NOTE | 2024-07-21 12:23 | P.PCN ---
Date of Procedure: 07/21/24 Description of Procedure: PREOPERATIVE DIAGNOSIS: Family history of colon cancer Family history of gastrointestinal malignancy Personal history of colon polyp Colonoscopy screening. POSTOPERATIVE DIAGNOSIS: Colonoscopy screening. Diverticulosis, scattered. OPERATION: Colonoscopy to the cecum, ileocecal valve and appendiceal orifice. SURGEON: Annie Solitario MD. ANESTHESIA: MAC. INDICATIONS: The patient is a 69-year-old male who presents for colonoscopy screening. Last colonoscopy 5 years ago. Benefits and risks were described and informed consent was obtained. DESCRIPTION OF PROCEDURE: The patient had undergone GoLytely prep. The patient had been brought into the operating room and laid in the left lateral decubitus position. After adequate intravenous sedation, the rectum was examined with 2% lidocaine jelly. External hemorrhoids were encountered. The rectal tone was within normal limits. No lesions were palpated in the rectal vault. An Olympus colonoscope was advanced until the cecum, ileocecal valve and appendiceal orifice were clearly viewed. The prep was good. Scattered diverticulosis was encountered. No colonic polyps were found. No evidence of focal colitis was found. Retroflexion of the scope demonstrated grade 2 internal hemorrhoids without active bleeding or infl ammation. The colon was desufflated. The patient had tolerated the procedure well. Withdrawal time was over 6 minutes. FINDINGS: Aronchick preparation quality scale 2 (1-5) Internal hemorrhoids, grade 2 External prolapsed hemorrhoids, grade 2 No arteriovenous malformations. No adenomatous polyps. No focal colitis. Severe sigmoid diverticulosis with redundancy requiring abdominal pressure RECOMMENDATIONS: Lower endoscopy in 5 years, 2028 Plan - Discharge Summary New Discharge Prescriptions: Continue Montelukast Sodium [Singulair] 10 mg PO DAILY Multivitamins, Thera [Multivitamin (formulary)] 1 tab PO DAILY Acetaminophen Tab [Tylenol] 1,000 mg PO Q6HR PRN #30 tablet PRN Reason: Pain Adalimumab [Humira(Cf) Pen] 40 mg SQ [id number] Losartan Potassium 100 mg PO DAILY Omeprazole [PriLOSEC] 40 mg PO QAM PRN PRN Reason: GERD Citalopram Hydrobromide [CeleXA] 20 mg PO DAILY Fluticasone Nasal [place] [Flonase Nasal [place]] 1 spray EA NOSTRIL DAILY Simethicone [Gas-X] 125 mg PO AC-TID PRN #20 cap PRN Reason: Pain Discharge Medication List Montelukast Sodium [Singulair] 10 mg PO DAILY 12/01/19 [History] Multivitamins, Thera [Multivitamin (formulary)] 1 tab PO DAILY 12/01/19 [History] Citalopram Hydrobromide [CeleXA] 20 mg PO DAILY 07/05/21 [History] Fluticasone Nasal [place] [Flonase Nasal [place]] 1 spray EA NOSTRIL DAILY 07/05/21 [History] Omeprazole [PriLOSEC] 40 mg PO QAM PRN 07/05/21 [History] Acetaminophen Tab [Tylenol] 1,000 mg PO Q6HR PRN #30 tablet 07/19/21 [Rx] Simethicone [Gas-X] 125 mg PO AC-TID PRN #20 cap 07/19/21 [Rx] Adalimumab [Humira(Cf) Pen] 40 mg SQ [id number] 07/20/24 [History] Losartan Potassium 100 mg PO DAILY 07/21/24 [History] Follow up Appointment(s)/Referral(s): Annie Solitario MD [STAFF PHYSICIAN] - As Needed Patient Instructions/Handouts: Diverticulosis Diet (GEN), Diverticulosis (GEN) Activity/Diet/Wound Care/Special Instructions: Repeat colonoscopy 5 years, 2028 Discharge Disposition: HOME SELF-CARE
[2024-07-21 12:33] VITALS: BP 134/79; PULSE 54
== END 2024-07-21 12:49 | disposition home or self-care (01) ==
LOC: ORWHC2ENDO 10:13
PROVIDERS: ATTEND Surgery Plastic and Reconstructive Surgery
DX: Z12.11 Encounter for screening for malignant neoplasm of colon (principal); K29.50 Unspecified chronic gastritis without bleeding; D13.2 Benign neoplasm of duodenum; J45.909 Unspecified asthma, uncomplicated; K21.9 Gastro-esophageal reflux disease without esophagitis; K29.80 Duodenitis without bleeding; K31.89 Other diseases of stomach and duodenum; K57.30 Diverticulosis of large intestine without perforation or abscess without bleeding; F10.90 Alcohol use, unspecified, uncomplicated; Z79.899 Other long term (current) drug therapy; Z80.0 Family history of malignant neoplasm of digestive organs; Z87.891 Personal history of nicotine dependence; Z90.49 Acquired absence of other specified parts of digestive tract; Z86.010 Personal history of colon polyps; Z79.51 Long term (current) use of inhaled steroids
CPT/HCPCS: 88305; 45378; 43239; J2001; J2704

== ENCOUNTER → 2024-07-30 | Day surgery (SDC) | payer BC ==
[~2024-07-30] MED LIST changes: -ACETAMINOPHEN TAB 500 MG TAB PO PRN; -DEXAMETHASONE SOD PHOSPHATE 4 MG/ML 1 ML VIAL IV ONE; -GABAPENTIN 300 MG CAP PO PRN; +GLYCOPYRROLATE 0.2 MG/ML 2 ML VIAL ONE; -HEPARIN SODIUM,PORCINE/PF 5,000 UNIT/0.5 ML SYRINGE SQ PRN; +HYDROmorphone (PF) 1 MG/ML ONE; -HYDROmorphone 0.5 MG/0.5 ML SYRINGE IVP PRN; +INDOCYANINE GREEN 25 MG VIAL IV STA; +LIDOCAINE 1% (10MG/ML) FOR IV START INTRADERMA PRN; +LIDOCAINE 1% INJ 10MG/ML (20 ML MDV) ONE; -MELOXICAM 7.5 MG TAB PO PRN; +MIDAZOLAM 2 MG/2 ML VIAL ONE; +NEOSTIGMINE 1 MG/ML 10 ML VIAL ONE; -ONDANSETRON 4 MG/2 ML VIAL IVP ONE; +ONDANSETRON 4 MG/2 ML VIAL IVP PRN; +PROPOFOL 10 MG/ML 20 ML VIAL IV ONE; +ROCURONIUM 10 MG/ML (5 ML VIAL) IV ONE; +SUCCINYLCHOLINE CHLORIDE 200 MG/10 ML VIAL IV ONE; -TAMSULOSIN 0.4 MG CAP.ER.24H PO PRN; +ePHEDrine 50 MG/ML 1 ML VIAL ONE; +fentaNYL (PF) 50 MCG/ML 2 ML AMP ONE
--- NOTE | 2024-07-30 11:59 | P.GSHP ---
History of Present Illness H&P Date: 07/30/24 CHIEF COMPLAINT: Cholecystitis HISTORY OF PRESENT ILLNESS: The patient is a 69-year-old male who presents with history of epigastric including right upper quadrant abdominal pain. He underwent diagnostic studies for the gallbladder. Separately his clinical picture was consistent with cholecystitis. Now he presents for surgical intervention. PAST MEDICAL HISTORY: Please see list PAST SURGICAL HISTORY: Please see list MEDICATIONS: Please see list ALLERGIES: Denies. SOCIAL HISTORY: No illicit drug use or recent tobacco use FAMILY HISTORY: Pertinent for gallbladder disease REVIEW OF ORGAN SYSTEMS: CONSTITUTIONAL: No reports of fevers or chills. HEENT: Denies any troubles with the vision or hearing. ENDOCRINE: No reports of hypothyroidism. No diabetes. RESPIRATORY: No recent pneumonias. CARDIOVASCULAR: Denies chest pain or palpitations GI: No blood in stools or constipation. MUSCULOSKELETAL: Has occasional joint pain including back pain. NEURO: No seizure disorders or headaches. No recent stroke. PSYCH: No depression or suicidal ideation. HEMATOLOGIC: No personal or family history of DVTs or pulmonary emboli. PHYSICAL EXAM: VITAL SIGNS: Afebrile vital signs stable GENERAL: Well-developed pleasant male in no acute distress. HEENT: No scleral icterus. Extraocular movements grossly intact. Moist buccal mucosa. NECK: Supple without lymphadenopathy. CHEST: Unlabored respirations. Equal bilateral excursions. CARDIOVASCULAR: Regular rate regular rhythm rhythm. Distal 2+ pulses. ABDOMEN: Soft, nondistended. Tender along the epigastrium and right upper quadrant. MUSCULOSKELETAL: No clubbing, cyanosis, or edema. NEURO : No focal or lateralizing signs. Cranial nerves II-12 within normal limits. PSYCH: Alert and oriented to person, place and time. SKIN: Well perfused. Good skin turgor. ASSESSMENT: 1. Epigastric and right upper quadrant abdominal pain 2. Chronic cholecystitis PLAN: 1. Will need a robotic cholecystectomy possible open. Benefits and risks were described. 2. Heparin for DVT prophylaxis 5000 units. 3. Antibiotic prophylaxis. 4. CBC and CMP on day of procedure 5. Non-narcotic pre and post op pain management reviewed. 6. Indocyanine green for biliary imaging. Past Medical History Past Medical History: Asthma, GERD/Reflux, Skin Disorder Additional Past Medical History / Comment(s): diverticulitis, sludge in gallbladder, anklylosing spondylitis History of Any Multi-Drug Resistant Organisms: None Reported Past Surgical History: Appendectomy, Orthopedic Surgery Additional Past Surgical History / Comment(s): rt knee surgery for torn ligament Past Anesthesia/Blood Transfusion Reactions: Motion Sickness Past Psychological History: Depression Smoking Status: Former smoker Past Alcohol Use History: Daily Additional Past Alcohol Use History / Comment(s): quit smoking > 25 yrs ago, 3-4 alcoholic drinks daily Past Drug Use History: None Reported - Past Family History Sister(s) Family Medical History: Cancer Medications and Allergies Home Medications Medication Instructions Recorded Confirmed Type Montelukast Sodium [Singulair] 10 mg PO DAILY 12/01/19 07/21/24 History Multivitamins, Thera [Multivitamin 1 tab PO DAILY 12/01/19 07/21/24 History (formulary)] Citalopram Hydrobromide [CeleXA] 20 mg PO DAILY 07/05/21 07/21/24 History Fluticasone Nasal [place] [Flonase 1 spray EA NOSTRIL DAILY 07/05/21 07/21/24 History Nasal [place]] Omeprazole [PriLOSEC] 40 mg PO QAM PRN 07/05/21 07/21/24 History Acetaminophen Tab [Tylenol] 1,000 mg PO Q6HR PRN #30 tablet 07/19/21 07/21/24 Rx Simethicone [Gas-X] 125 mg PO AC-TID PRN #20 cap 07/19/21 07/21/24 Rx Adalimumab [Humira(Cf) Pen] 40 mg SQ [id number] 07/20/24 07/21/24 History Losartan Potassium 100 mg PO DAILY 07/21/24 07/21/24 History Allergies Allergy/AdvReac Type Severity Reaction Status Date / Time No Known Allergies Allergy Verified 07/21/24 10:32
[2024-07-30] MEDS: LACTATED RINGERS 1,000 ML IV SCH (14:21)
[2024-07-30 14:35] LABS: Basophils % (A) 1 %; Eosinophils # (A) 0.2 k/uL (0-0.7); Eosinophils % (A) 4 %; HCT 41.2 % (39.0-53.0); HGB 13.7 gm/dL (13.0-17.5); Lymphocytes # (A) 1.8 k/uL (1.0-4.8); Lymphocytes % (A) 33 %; MCH 29.8 pg (25.0-35.0); MCHC 33.2 g/dL (31.0-37.0); MCV 89.8 fL (80.0-100.0); Mean Platelet Volume 6.9; Monocytes # (A) 0.3 k/uL (0-1.0); Monocytes % (A) 5 %; Neutrophils # (A) 3.1 k/uL (1.3-7.7); Neutrophils % (A) 55 %; Platelet Count 254 k/uL (150-450); RBC 4.59 m/uL (4.30-5.90); RDW 13.1 % (11.5-15.5); WBC 5.5 k/uL (3.8-10.6)
[2024-07-30] MEDS: ACETAMINOPHEN TAB 500 MG TAB PO PRN (14:36)
[2024-07-30] MEDS: ONDANSETRON 4 MG/2 ML VIAL IVP ONE (14:36)
[2024-07-30] MEDS: HEPARIN SODIUM,PORCINE 5,000 UNIT/ML 1 ML VIAL SQ PRN (14:36)
[2024-07-30] MEDS: DEXAMETHASONE SOD PHOSPHATE 4 MG/ML 1 ML VIAL IVP STA (14:37)
[2024-07-30] MEDS: FAMOTIDINE 20 MG/2 ML VIAL IV STA (14:38)
[2024-07-30] MEDS: IV FLUID CONTINUATION 1,000 ML IV ONE ×2 (14:39→17:09)
[2024-07-30 14:57] LABS: ALT 20 U/L (4-49); AST 26 U/L (17-59); African American GFR (CKD) >90 (>60 ml/min/1.73 sqM); Albumin 4.3 g/dL (3.5-5.0); Alkaline Phosphatase 48 U/L (38-126); Anion Gap 1 mmol/L; Blood Urea Nitrogen 17 mg/dL (9-20); Calcium 9.6 mg/dL (8.4-10.2); Carbon Dioxide 30 mmol/L (22-30); Chloride 108 mmol/L (98-107); Glucose 91 mg/dL (74-99); Non-African American GFR(CKD) >90 (>60 ml/min/1.73 sqM); Potassium 4.4 mmol/L (3.5-5.1); Sodium 139 mmol/L (137-145); Total Bilirubin 0.8 mg/dL (0.2-1.3); Total Protein 7.1 g/dL (6.3-8.2)
[2024-07-30] MEDS: LIDOCAINE 1%-EPI 1:100,000 20 ML VIAL SQ ONE ×2 (16:21→16:51)
--- NOTE | 2024-07-30 17:43 | P.OP ---
Date of Procedure: 07/30/24 Description of Procedure: SURGEON: ANNIE SOLITARIO MD PREOPERATIVE DIAGNOSES: 1. Chronic cholecystitis POSTOPERATIVE DIAGNOSES: 1. Chronic cholecystitis 2. Peritoneal adhesions, right upper quadrant OPERATION: 1. Robotic-assisted da Olegario Xi laparoscopic lysis of adhesions more than 50% of the case 2. Robotic-assisted da Olegario Xi laparoscopic cholecystectomy, multiport with FIREFLY ESTIMATED BLOOD LOSS: 5 mL. SPECIMENS REMOVED: Gallbladder. COMPLICATIONS: None. OPERATIVE FINDINGS: 1. Moderate scarring over entire gallbladder with peritoneal adhesions, pericholecystic with features of chronic cholecystitis 2. Subcentimeter liver cyst along the left and right liver edge x 3 INDICATIONS: The patient is a 69-year-old male who presents with chronic cholecystitis. Robotic assisted laparoscopic approach was described. Benefits and risks of the procedure including but not limited to bleeding, infection, injury to the biliary tree was described. Informed consent was obtained. DESCRIPTION OF PROCEDURE: Patient was brought to the operating room, placed in supine position. After general induction, the abdomen had been prepped and draped in standard sterile fashion. The robotic da Olegario XI system was primed. After a timeout protocol was performed, the patient had been prepped and draped in standard sterile fashion. The patient was injected with indocyanine green. A 5 mm 0 degrees laparoscopic trocar entry was performed along the left upper quadrant. The abdomen insufflated to 15 mmHg pressure which was tolerated well. Diagnostic laparoscopy demonstrated no injury to bowel viscera or mesentery. The liver surface was remarkable for subcentimeter liver cyst x 3 along the bilateral liver edge. Next, two 8 mm robotic ports were placed along the right upper abdomen. The camera 8-mm port was maintained along the epigastrium. Another 8 mm port was placed along the left upper abdominal wall after exchanging the 5 mm port. Please note that the ports were placed at least 10 to 15 cm away from the target anatomy of the gallbladder. The robot was docked along the left lateral abdomen. The patient was repositioned in reverse Trendelenburg position. Using a grasper for arm 3, a grasper for arm 4, including hook cautery for arm 1, the robotic system was docked and primed as described. Instruments were interchanged by the assistant professor of physics including hook cautery, Bovie cautery and clip appliers. I had sat at the console. The gallbladder was scarred with peritoneal adhesions. Lysis of adhesions was performed to free the gallbladder from the surrounding tissues using hook cautery for over 50% of the case. Next attention was brought to the infundibulum and cystic structures. The infundibulum and cystic duct were dissected free from surrounding tissues. The cystic duct was isolated. FIREFLY was used to identify the cystic artery and cystic structures. A critical view of safety was obtained. Large PLASTIC clips were used throughout the entire case. Using a clip chief airline radio operator, 2 clips were placed at the junction of the infundibulum and cystic duct. The cystic duct was divided between clips. Next, the cystic artery was similarly clipped and cauterized. Total of 3 clips left in hepatic fossa. Electro-Bovie cautery was used to remove the gallbladder from the hepatic fossa. Hemostasis was checked and found to be adequate. The robot was undocked. I re-scrubbed into the case. Using a 10 mm Endo Catch bag via the left upper quadrant incision, the specimen was removed from the abdominal cavity. All pneumoperitoneum instruments were evacuated from the abdominal cavity. The incisions were reapproximated using 4-0 Monocryl in an interrupted subcuticular fashion. Fascial defects were less than 8 mm in size. Please note along the trocar sites, local anesthetic was placed as a field block prior to insertion of all instruments. Liquid glue was applied to the skin. At the end of the procedure needle, sponge, and instrument count had been verified correct by the surgical instrument maker. The patient was transferred to postanesthesia care unit in stable condition. Intraoperative films were shared with the patient's family. Plan - Discharge Summary Discharge Rx Participant: No New Discharge Prescriptions: New Acetaminophen Tab [Tylenol Tab] 1,000 mg PO Q6HR PRN #30 tablet PRN Reason: Pain Ibuprofen [Motrin] 600 mg PO Q8HR PRN #30 tab PRN Reason: Pain Omeprazole [PriLOSEC] 40 mg PO DAILY #14 cap Continue Montelukast Sodium [Singulair] 10 mg PO DAILY Multivitamins, Thera [Multivitamin (formulary)] 1 tab PO DAILY Acetaminophen Tab [Tylenol] 1,000 mg PO Q6HR PRN #30 tablet PRN Reason: Pain Adalimumab [Humira(Cf) Pen] 40 mg SQ [id number] Losartan Potassium 100 mg PO DAILY Citalopram Hydrobromide [CeleXA] 20 mg PO DAILY Fluticasone Nasal Edwards [Flonase Nasal Edwards] 1 spray EA NOSTRIL DAILY Discontinued Omeprazole [PriLOSEC] 40 mg PO QAM PRN PRN Reason: GERD Simethicone [Gas-X] 125 mg PO AC-TID PRN #20 cap PRN Reason: Pain Discharge Medication List Montelukast Sodium [Singulair] 10 mg PO DAILY 12/01/19 [History] Multivitamins, Thera [Multivitamin (formulary)] 1 tab PO DAILY 12/01/19 [History] Citalopram Hydrobromide [CeleXA] 20 mg PO DAILY 07/05/21 [History] Fluticasone Nasal Edwards [Flonase Nasal Edwards] 1 spray EA NOSTRIL DAILY 07/05/21 [History] Acetaminophen Tab [Tylenol] 1,000 mg PO Q6HR PRN #30 tablet 07/19/21 [Rx] Adalimumab [Humira(Cf) Pen] 40 mg SQ [id number] 07/20/24 [History] Losartan Potassium 100 mg PO DAILY 07/21/24 [History] Acetaminophen Tab [Tylenol Tab] 1,000 mg PO Q6HR PRN #30 tablet 07/30/24 [Rx] Ibuprofen [Motrin] 600 mg PO Q8HR PRN #30 tab 07/30/24 [Rx] Omeprazole [PriLOSEC] 40 mg PO DAILY #14 cap 07/30/24 [Rx] Follow up Appointment(s)/Referral(s): Annie Solitario MD [STAFF PHYSICIAN] - 08/03/24 6:40 pm (TELEHEALTH) Patient Instructions/Handouts: Laparoscopic Cholecystectomy (GEN) Activity/Diet/Wound Care/Special Instructions: TELEHEALTH - DR WILL CALL YOU BETWEEN 9 am to 8 pm NO LONG DRIVES OR AIRPLANE RIDES OVER 30 MINUTES FOR THE NEXT 2 WEEKS DUE TO HIGH RISK OF PULMONARY EMBOLISM/DVTs, AUG 13 Recommend low-fat diet for the next 2 days. No lifting over 10 pounds in 2 weeks until AUG 13March shower. No bath tub soaks for two weeks until AUG 13 Use Tylenol, simethicone and ibuprofen or Aleve scheduled for the next 24-48 hours for best pain relief. Use ice along incisions for today to prevent swelling. Discharge Disposition: HOME SELF-CARE
[2024-07-30 17:57] VITALS: RESP 16; TEMP 97.6
[2024-07-30] MEDS: HYDROmorphone 0.5 MG/0.5 ML SYRINGE IVP PRN (18:22)
[2024-07-30 19:15] VITALS: BP 155/89; PULSE 78
== END | disposition home or self-care (01) ==
LOC: OR 13:41
PROVIDERS: ATTEND Surgery Plastic and Reconstructive Surgery
DX: K81.1 Chronic cholecystitis
CPT/HCPCS: 47562; 80053; 85025; 88304; C9776; S2900

== ENCOUNTER → 2025-03-12 | Outpatient (CLI) | payer BC ==
--- NOTE | 2025-03-12 09:24 | MR ---
EXAMINATION TYPE: MR Prostate wo/w con DATE OF EXAM: 03/12/2025 COMPARISON: None. INDICATION: Elevated PSA. PSA: 4.437 ng/ml on March 02, 2025 Recent Biopsy and Date: None Pathology Report (If Applicable): TECHNIQUE: Examination was performed using a 3T MRI without an endorectal coil. Multiparametric imaging was perf ormed with T2 mutliplanar sequences, axial diffusion weighted imaging and dynamic contrast enhanced i maging, utilizing 9 mL intravenous Gadobutrol gadolinium contrast. FINDINGS: PROSTATE VOLUME: 5.0 cm SI x 3.9 cm AP x 4.2 cm LR Vol= 42.9 cc PSA DENSITY: 0.10 ng/ml/cc Slightly enlarged prostate consistent with BPH is present. Peripheral zone shows no suspicious areas of diminished signal on ADC mapping. There is no suspicious areas of increased signal on diffusion-we ighted imaging throughout the entire prostate gland. Transitional zone shows small nodules bilaterall y. No suspicious T2 hypointense areas. Assessment Category:2 Mild to moderately distended bladder. Sigmoid colonic diverticulosis is present. No destructive osseo us lesions. IMPRESSION: Slightly enlarged prostate consistent with BPH. A focus of clinically significant cancer is not identified. Highest Assessment Category: 2 MRI Stage: T0 N0 M0 based on review of pelvic images. False negative rates for MRI range from 5-20% depending on risk profile. Assessment Categories: 1 ? Very low (clinically significant cancer is highly unlikely to be present) 2 ? Low (clinically significant cancer is unlikely to be present) 3 ? Intermediate (the presence of clinically significant cancer is equivocal) 4 ? High (clinically significant cancer is likely to be present) 5 ? Very high (clinically significant cancer is highly likely to be present) [facility], , 03/12/2025 9:22 AM
== END | disposition home or self-care (01) ==
LOC: RADMRIMAIN 08:12
PROVIDERS: ATTEND Family Medicine
DX: R97.20 Elevated prostate specific antigen [PSA] (principal); N40.0 Benign prostatic hyperplasia without lower urinary tract symptoms
CPT/HCPCS: 72197; A9585

== ENCOUNTER → 2025-03-15 | Outpatient (CLI) | payer BC ==
[2025-03-15 13:21] LABS: African American GFR (CKD) >90 (>60 ml/min/1.73 sqM); Blood Urea Nitrogen 20 mg/dL (9-20); Non-African American GFR(CKD) >90 (>60 ml/min/1.73 sqM)
--- NOTE | 2025-03-15 14:03 | CT ---
EXAMINATION TYPE: CT abdomen w con DATE OF EXAM: 03/15/2025 COMPARISON: 05/10/2021 CLINICAL INDICATION: Male, 69 years old with history of N28.1 CYST OF KIDNEY, ACQUIRED; PH[facility], cyst on kidney TECHNIQUE: Performed with Oral Contrast and with IV Contrast, patient injected with 100ml mL of Isovue 300. CT DLP: 1010.[address] CTDI: mGy Automated exposure control for dose reduction was used. FINDINGS: The lung bases are clear. There is marked cardiomegaly. The gallbladder is surgically absent. There is no biliary ductal dilatation. There is no focal mass or organomegaly involving the liver, pancreas, spleen or adrenal glands. There are 2 small hepatic cyst in the right lobe of the liver. There is no solid renal mass or hydronephrosis and there is homogeneous contrast enhancement of the r enal parenchyma. There are multiple cysts, the largest right right renal cyst is 4.4 cm. There are 2 small exophytic cysts of the left kidney. The caliber the abdominal aorta is normal is no retroperitoneal adenopathy or hemorrhage. The bowel loops are normal in caliber and there is no evidence of dilatation or obstruction. No infla mmatory changes are identified in the bowel wall or mesentery. There is moderate diverticulosis of th e descending and sigmoid colon without CT evidence of acute diverticulitis. There is no free intraperitoneal air or fluid. The osseous structures and soft tissues are intact. IMPRESSION: 1. Unremarkable renal cysts. 2. Marked cardiomegaly. 3. Moderate diverticulosis of the colon without CT evidence of acute diverticulitis. [facility], , 03/15/2025 2:00 PM
== END | disposition home or self-care (01) ==
LOC: RADCTMAIN 12:43
PROVIDERS: ATTEND Family Medicine
DX: N28.1 Cyst of kidney, acquired (principal); I51.7 Cardiomegaly; K57.30 Diverticulosis of large intestine without perforation or abscess without bleeding
CPT/HCPCS: 82565; 84520; 74160; 36415; Q9967